=== PATIENT | female | born 1985 | race Caucasian/White ===

== ENCOUNTER → 2017-11-23 | Outpatient (CLI) | payer BC | END | disposition home or self-care (01) | LOC: SURG 11:26 | PROVIDERS: ATTEND Anesthesiology Pain Medicine | DX: M47.896 Other spondylosis, lumbar region (principal); K44.9 Diaphragmatic hernia without obstruction or gangrene | CPT/HCPCS: 99214 ==

== ENCOUNTER → 2018-02-02 | Outpatient (CLI) | payer BC | END | disposition home or self-care (01) | LOC: SURG 10:40 | PROVIDERS: ATTEND Anesthesiology Pain Medicine | DX: M47.816 Spondylosis without myelopathy or radiculopathy, lumbar region (principal); F11.90 Opioid use, unspecified, uncomplicated; G89.4 Chronic pain syndrome; R10.2 Pelvic and perineal pain | CPT/HCPCS: 99214 ==